=== PATIENT | female | born 1995 | race Caucasian/White ===

== ENCOUNTER → 2020-07-16 | Outpatient (CLI) | payer OTHER | LOC: KOH-I 09:33 | DX: S92.254A Nondisplaced fracture of navicular [scaphoid] of right foot, initial encounter for closed fracture (principal) | CPT/HCPCS: 73700 ==

== ENCOUNTER → 2020-08-09 | Outpatient (CLI) | payer OTHER | LOC: KOH-I 09:09 | DX: S92.251A Displaced fracture of navicular [scaphoid] of right foot, initial encounter for closed fracture (principal) | CPT/HCPCS: 73630 ==